=== PATIENT | male | born 1945 | race Caucasian/White ===

== ENCOUNTER 2019-07-16 13:35 | Emergency (ER) | payer MEDICARE, OTHER ==
[2019-07-16] MEDS ORDERED: MORPHINE SULFATE 5 MG/ML VIAL IVP ONE ×2 (13:41→14:08)
[2019-07-16] MEDS ORDERED: ONDANSETRON HCL IV 4 MG/2 ML VIAL IVP ONE (13:41)
[2019-07-16] MEDS ORDERED: Diph,Pert(Acell),Tet Vac 0.5 ML SYR IM ONE (13:53)
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
[2019-07-16] MEDS ORDERED: HYDROMORPHONE HCL 2 MG/ML VIAL IVP ONE ×2 (14:08→14:41)
[2019-07-16] MEDS ORDERED: RINGERS SOLUTION,LACTATED 1,000 ML IV STA (14:37)
[2019-07-16] MEDS ORDERED: RINGERS SOLUTION,LACTATED 1,000 ML IV PRN (14:37)
== END 2019-07-16 14:43 | disposition short-term general hospital (02) ==
LOC: ER 13:35
DX: T20.39XA Burn of third degree of multiple sites of head, face, and neck, initial encounter (principal); T21.31XA Burn of third degree of chest wall, initial encounter; T23.392A Burn of third degree of multiple sites of left wrist and hand, initial encounter; T23.391A Burn of third degree of multiple sites of right wrist and hand, initial encounter; T31.22 Burns involving 20-29% of body surface with 20-29% third degree burns; W40.1XXA Explosion of explosive gases, initial encounter; I10 Essential (primary) hypertension; Z85.46 Personal history of malignant neoplasm of prostate; Z79.02 Long term (current) use of antithrombotics/antiplatelets
CPT/HCPCS: 90715; 94640; 96372; 96374; 96375; 96376; 99285; J2405; J7120